=== PATIENT | female | born 1970 | race Caucasian/White ===

== ENCOUNTER 2017-09-11 14:20 | Inpatient (IN) | payer BC ==
[~2017-09-11] VITALS: Ht 157.5 cm; Wt 73.0 kg
[2017-09-11 14:30] VITALS: Ht 157.5 cm; Wt 73.0 kg
[2017-09-11 15:34] LABS: BASOPHIL % 0.3 % (0-2); PLATELET COUNT 168 x10^3mcL (130-400)
[2017-09-11 15:39] LABS: CALCIUM 8.5 mg/dL (8.5-10.1); CARBON DIOXIDE 29.4 mmol/L (21-32); CHLORIDE SERUM 100 mmol/L (98-107); CREATININE SERUM 0.7 mg/dL (0.6-1.0); GFR1 > 60 mL/min; GLUCOSE SERUM 104 mg/dL (74-106); POTASSIUM SERUM 3.5 mmol/L (3.5-5.1); SODIUM SERUM 140 mmol/L (136-145)
[2017-09-11 15:43] LABS: ALKALINE PHOSPHATASE 102 U/L (46-116); ALT/SGPT 131 U/L (14-59); AMYLASE 34 U/L (25-115); AST/SGOT 35 U/L (15-37); BILIRUBIN TOTAL 1.1 mg/dL (0.20-1.00); LIPASE 81 IU/L (73-393); TOTAL PROTEIN, SERUM 7.8 g/dL (6.4-8.2)
[2017-09-11 15:50] LABS: RED CELL DISTRIBUTION WIDTH 14.8 % (11.5-14.5)
[2017-09-11 16:27] LABS: microscopic required? NO
[2017-09-11 17:13] LABS: UA SPECIFIC GRAVITY <=1.005 (1.005-1.035); urine erythrocyte NEGATIVE (NEGATIVE)
[2017-09-11] MEDS ORDERED: NABUMETONE750 MG PO (18:15)
[2017-09-11] MEDS ORDERED: OMEPRAZOLE20 M4 PO (18:15)
[2017-09-11 19:38] VITALS: BP 123/54
[2017-09-11 19:49] LABS: FREE T4 0.98 ng/dL (0.76-1.46); FREE THYROXINE INDEX 2.5 ug/dL (1.4-4.5)
[2017-09-11 19:50] LABS: T3 TOTAL 0.88 ng/mL
[2017-09-11 19:57] LABS: MAGNESIUM 1.9 mg/dL (1.8-2.4)
[2017-09-11 19:59] LABS: CHOLESTEROL/HDL RATIO 2.2
[2017-09-11 21:36] LABS: AMPHETAMINE QUAL UR NONE DETECTED (NEG <=1000)
[2017-09-12 05:17] VITALS: BP 95/45; BP 95/46; BP 95/58
[2017-09-12 06:22] LABS: BASOPHIL % 0.2 % (0-2); PLATELET COUNT 146 x10^3mcL (130-400)
[2017-09-12 06:45] LABS: CALCIUM 7.9 mg/dL (8.5-10.1); CARBON DIOXIDE 27.2 mmol/L (21-32); CHLORIDE SERUM 104 mmol/L (98-107); CREATININE SERUM 0.6 mg/dL (0.6-1.0); GFR1 > 60 mL/min; GLUCOSE SERUM 104 mg/dL (74-106); MAGNESIUM 1.9 mg/dL (1.8-2.4); PHOSPHOROUS 4.6 mg/dL (2.5-4.9); POTASSIUM SERUM 3.5 mmol/L (3.5-5.1); SODIUM SERUM 142 mmol/L (136-145)
[2017-09-12 09:15] VITALS: BP 120/60
[2017-09-12 13:40] VITALS: BP 106/62
[2017-09-12 16:46] VITALS: BP 109/64
[2017-09-12 22:10] VITALS: BP 104/56
[2017-09-13 04:52] VITALS: BP 106/65
[2017-09-13 07:59] LABS: BASOPHIL % 0.5 % (0-2); PLATELET COUNT 143 x10^3mcL (130-400)
[2017-09-13 08:05] LABS: RED CELL DISTRIBUTION WIDTH 14.9 % (11.5-14.5)
[2017-09-13 08:12] LABS: CALCIUM 8.1 mg/dL (8.5-10.1); CARBON DIOXIDE 25.2 mmol/L (21-32); CHLORIDE SERUM 106 mmol/L (98-107); CREATININE SERUM 0.6 mg/dL (0.6-1.0); GFR1 > 60 mL/min; GLUCOSE SERUM 106 mg/dL (74-106); PHOSPHOROUS 3.6 mg/dL (2.5-4.9); POTASSIUM SERUM 3.5 mmol/L (3.5-5.1); SODIUM SERUM 141 mmol/L (136-145)
[2017-09-13 09:19] VITALS: BP 125/70
[2017-09-13 17:06] VITALS: BP 114/71
[2017-09-13 20:45] VITALS: BP 121/68
[2017-09-14 05:03] VITALS: BP 115/76
[2017-09-14 06:32] LABS: CALCIUM 8.1 mg/dL (8.5-10.1); CARBON DIOXIDE 27.2 mmol/L (21-32); CHLORIDE SERUM 103 mmol/L (98-107); CREATININE SERUM 0.6 mg/dL (0.6-1.0); GFR1 > 60 mL/min; GLUCOSE SERUM 86 mg/dL (74-106); PHOSPHOROUS 4.1 mg/dL (2.5-4.9); POTASSIUM SERUM 3.3 mmol/L (3.5-5.1); SODIUM SERUM 141 mmol/L (136-145)
[2017-09-14 06:44] LABS: IRON 31 ug/dL (50-170); TOTAL IRON BINDING CAPACITY 231 ug/dL (250-450)
[2017-09-14 07:20] LABS: BASOPHIL % 0.6 % (0-2); PLATELET COUNT 161 x10^3mcL (130-400); RED BLOOD CELLS 3.93 M/mm3 (4.10-5.10)
[2017-09-14 07:22] LABS: RED CELL DISTRIBUTION WIDTH 14.7 % (11.5-14.5)
[2017-09-14 16:41] VITALS: BP 109/70
[2017-09-14 22:20] VITALS: BP 106/68
[2017-09-15 06:05] VITALS: BP 103/56
[2017-09-15] MEDS ORDERED: LAC PO (06:14)
[2017-09-15] MEDS ORDERED: LEVAQUIN750 MG PO ×2 (06:18→06:19)
[2017-09-15] MEDS ORDERED: FLA500 PO ×2 (06:18→06:20)
[2017-09-15 07:49] LABS: BASOPHIL % 0.7 % (0-2); PLATELET COUNT 218 x10^3mcL (130-400)
[2017-09-15 07:52] LABS: RED CELL DISTRIBUTION WIDTH 14.7 % (11.5-14.5)
[2017-09-15 08:03] LABS: CALCIUM 8.5 mg/dL (8.5-10.1); CHLORIDE SERUM 102 mmol/L (98-107); CREATININE SERUM 0.7 mg/dL (0.6-1.0); GFR1 > 60 mL/min; GLUCOSE SERUM 94 mg/dL (74-106); MAGNESIUM 2.1 mg/dL (1.8-2.4); PHOSPHOROUS 4.6 mg/dL (2.5-4.9); POTASSIUM SERUM 3.6 mmol/L (3.5-5.1); SODIUM SERUM 141 mmol/L (136-145)
[2017-09-15 09:18] VITALS: BP 111/62
[2017-09-15] MEDS ORDERED: APAP/HYDROCODON1 T13 PO (14:26)
[2017-09-15 15:09] VITALS: BP 111/62
== END 2017-09-15 16:00 | disposition home or self-care (01) | DRG 340 ==
LOC: ED 14:20 → MU 18:22 → DU 18:22 → MU 09-12 14:51
PROVIDERS: Emergency Medicine; Family Medicine; Family Medicine Sports Medicine; Surgery
PROC: 3E1M38X Irrigation of Peritoneal Cavity using Irrigating Substance, Percutaneous Approach, Diagnostic (ICD-10-PCS; 2017-09-12)
PROC: 0DTJ4ZZ Resection of Appendix, Percutaneous Endoscopic Approach (ICD-10-PCS; principal; 2017-09-12 10:00)
DX: K35.2 Acute appendicitis with generalized peritonitis (principal); R74.0 Nonspecific elevation of levels of transaminase and lactic acid dehydrogenase [LDH]; E03.9 Hypothyroidism, unspecified; E87.6 Hypokalemia; D64.9 Anemia, unspecified; E66.3 Overweight; Z82.49 Family history of ischemic heart disease and other diseases of the circulatory system; Z68.29 Body mass index [BMI] 29.0-29.9, adult
CPT/HCPCS: 83880; 84439; 94150; J0295; J0330; J1644; J1885; J2250; J2270; J2405; J2543; J2704; J2710; J2765; J3010; J3480; J3490; J7030; J7120; Q0092; Q9967